=== PATIENT | female | born 1995 | race Caucasian/White ===

== ENCOUNTER 2018-08-04 19:50 | Emergency (ER) | payer OTHER, SELFPAY ==
[2018-08-04 19:56] VITALS: BP 152/92; PULSE 118; RESP 14; TEMP 36.4; O2SAT 98
--- NOTE | 2018-08-04 19:59 | DI.RAD.S_ITS ---
PROCEDURE: XR KNEE RT 3V INDICATIONS: pain/ swelling right knee, remote trauma TECHNIQUE: 3 views of the knee were acquired. COMPARISON: None. FINDINGS: Bones: No fractures or dislocations. No suspicious bony lesions. Soft tissues: No joint effusion. No suspicious soft tissue calcifications. IMPRESSION: No acute osseous abnormality of the right knee. Dictated by: Ru Dasilva M.D. on 08/04/2018 at 20:30 Approved by: Ru Dasilva M.D. on 08/04/2018 at 20:31
--- NOTE | 2018-08-04 20:17 | ED_ITS ---
HPI - Extremity Injury (Lower) <ANA Anthony - Last Filed: 08/04/18 21:10> General Chief Complaint: Extremity Injury, Lower Stated Complaint: right knee pain x3 days Time Seen by Provider: 08/04/18 19:57 Source: patient Mode of arrival: ambulatory Limitations: no limitations History of Present Illness HPI Narrative: 23-year-old healthy female presents emergency department today complaining of right knee pain for the past few days that is worse with driving and worse with knee flexion. States pain is 8/10 sharp shooting down the medial aspect of the joint, and there is a dull aching diffuse pain under the patella. Patient reports that about a year ago she fell on her knee on a rock while hiking and became swollen and painful for few weeks, she has had a few episodes since then of recurrence swelling and pain. Patient was seen [place] the base and x- ray was done however she has not been able to get the results even though she has tried calling the clinic multiple times. Patient denies fevers, chills, recurrence trauma or twisting of the knee, nausea, vomiting, change in bowel or bladder function, chest pain, or shortness of breath. MD complaint: knee injury Onset (ago): week(s) Type of Injury: blunt Place: street/outdoors Severity: moderate Severity scale (1-10): 8 Relieving factors: rest Exacerbating factors: weight bearing Context: fall Associated symptoms: snap/pop sensation Other symptoms: none Related Data Allergies Allergy/AdvReac Type Severity Reaction Status Date / Time No Known Drug Allergies Allergy Verified 08/04/18 19:59 Review of Systems <ANA Anthony - Last Filed: 08/04/18 21:10> Review of Systems REVIEW OF SYSTEMS: GENERAL: Denies fever or chills. HENT: No head trauma, hearing loss or sore throat. EYES: No loss of vision, double vision, eye pain, or irritation. CARDIOVASCULAR: No chest pain or syncope. RESPIRATORY: No shortness of breath or cough. GASTROINTESTINAL: No nausea, vomiting, diarrhea, or constipation. GENITOURINARY: No flank pain or dysuria. MUSCULOSKELETAL: See HPI, complains of knee pain. INTEGUMENTARY: No rash, lesions, or pruritus. NEURO: No numbness, tingling, memory loss, or confusion. PSYCH: No behavior or mood changes. PFSH <ANA Anthony - Last Filed: 08/04/18 21:10> Medical History No significant medical problems (Acute) Social History Smoking Status: Never smoker Social History Smoking Status: Never smoker Exam <ANA Anthony - Last Filed: 08/04/18 21:10> Initial Vital Signs Initial Vital Signs: Vital Signs Temperature 97.5 F L 08/04/18 19:56 Pulse Rate 118 H 08/04/18 19:56 Respiratory Rate 14 08/04/18 19:56 Blood Pressure 152/92 H 08/04/18 19:56 Pulse Oximetry 98 08/04/18 19:56 PHYSICAL EXAMINATION: GENERAL: Well groomed, alert, and cooperative Answers questions promptly and appropriately. Vital signs noted. HENT: Normocephalic, atraumatic. EYES: Conjunctiva pink, sclera white, no periorbital swelling. CARDIOVASCULAR: S1 and S2 sounds normal. Regular rate and rhythm, no murmurs, clicks, or bruits. No pedal edema. RESPIRATORY: No respiratory distress, normal rate and rhythm. MUSCULOSKELETAL: Passive range of motion performed this slight discomfort on flexion. Slight tenderness and minor swelling to area under patella. No tenderness along the joint line, no tenderness with patella movement, negative drawer test, no laxity of the MCL or LCL, negative George test. No erythema or increased warmth surrounding the joint. No bruises noted. EXTREMITIES: CMS intact. Full range of motion and 5/5 strength to upper and lower extremities SKIN: Warm, dry, soft, appropriate color for ethnicity. No lesions, rashes, or wounds. NEURO: Alert and Oriented X 3. Good coordination. No ataxia, or sensory deficits, or cognitive issues. PSYCH: Appropriate affect and mood. <Tatiana Mariscal DO - Last Filed: 08/05/18 04:16> Initial Vital Signs Initial Vital Signs: Vital Signs Temperature 97.5 F L 08/04/18 19:56 Pulse Rate 118 H 08/04/18 19:56 Respiratory Rate 14 08/04/18 19:56 Blood Pressure 152/92 H 08/04/18 19:56 Pulse Oximetry 98 08/04/18 19:56 Course <ANA Anthony - Last Filed: 08/04/18 21:10> Course Narrative: Abiodun bandage applied Orders Ordered: ED Orders 08/04/18 19:59 XR knee RT 3V Stat Discontinued Medications Ibuprofen (Advil) 800 mg PO NOW ONE Stop: 08/04/18 20:18 Last Admin: 08/04/18 20:38 Dose: 800 mg Consultations Consultation #1: Patient's staffed with Dr. Mariscal. Vital Signs - 8 hr 08/04/18 20:56 Pulse Rate 88 Respiratory Rate 14 Blood Pressure 138/80 <Tatiana Mariscal DO - Last Filed: 08/05/18 04:16> Orders Ordered: ED Orders 08/04/18 19:59 XR knee RT 3V Stat Discontinued Medications Ibuprofen (Advil) 800 mg PO NOW ONE Stop: 08/04/18 20:18 Last Admin: 08/04/18 20:38 Dose: 800 mg Vital Signs - 8 hr 08/04/18 20:56 Pulse Rate 88 Respiratory Rate 14 Blood Pressure 138/80 MDM - Extremity Injury (Lower) <ANA Anthony - Last Filed: 08/04/18 21:10> Medical Records Attestation: I reviewed the patient's medical records. Lab Data Attestation: I reviewed the patient's lab results. ECG Data Attestation: I personally reviewed and interpreted this ECG as follows: Interpretation: [address] [address] XRay Report Signed Patient: Lauren Caceres KMR#: [id number] : 1995Acct:[id number] Age/Sex: 23 / FDate of Service: 08/04/18 Loc: ED Accession Number: [id number] Procedure: XR knee RT 3V Ordering Provider: Eliane Castro PROCEDURE: XR KNEE RT 3V INDICATIONS: pain/ swelling right knee, remote trauma TECHNIQUE: 3 views of the knee were acquired. COMPARISON: None. FINDINGS: Bones: No fractures or dislocations. No suspicious bony lesions. Soft tissues: No joint effusion. No suspicious soft tissue calcifications. IMPRESSION: No acute osseous abnormality of the right knee. Dictated by: Ru Dasilva M.D. on 08/04/2018 at 20:30 Approved by: Ru Dasilva M.D. on 08/04/2018 at 20:31 MDM Narrative Medical decision making narrative: Unsure exact cause of the pain however most likely strain, contusion or bursitis due to stable ligaments during exam, negative x-ray, lack of erythema or bruising, and no history of twisting of the knee that would make me suspect meniscal. Discussed with patient follow-up for further imaging and physical therapy if symptoms continue. Strict return precautions given. Discharge Plan Departure Patient Disposition: Home Clinical Impression: Acute knee pain Qualifiers: Laterality: right Qualified Code(s): M25.561 - Pain in right knee Discharge Date/Time: 08/04/18 20:57 Interventions: ED Discharge Assessment Last Done: 08/04/18 20:56 Instructions: DI for Knee Sprain, DI for Knee Pain Activity Restrictions/Additional Instructions: Thank you for entrusting me with your care today. As discussed, I am uncertain the cause for your knee pain and it may be caused by a strain or bursitis. Take ibuprofen for next week and use Abiodun bandages needed to decrease swelling. As discussed follow-up with her primary care provider to discuss further imaging such as an MRI if symptoms persist and or physical therapy. Please return emergency department if you have fevers, chills, chest pain, or profuse vomiting. <Tatiana Mariscal DO - Last Filed: 08/05/18 04:16> Cosign ED Attending Mikael Attestation: I was immediately available in the department for consultation. Documentation has been reviewed. I agree with assessment and plan.
[2018-08-04] MEDS: IBUPROFEN 400 MG TABLET 800 MG PO (20:38)
[2018-08-04 20:56] VITALS: BP 138/80; PULSE 88; RESP 14
== END 2018-08-04 20:57 | disposition home or self-care (01) ==
PROVIDERS: Emergency Provider Nurse Practitioner
DX: M25.561 Pain in right knee (principal); W18.30XA Fall on same level, unspecified, initial encounter; Y93.01 Activity, walking, marching and hiking
CPT/HCPCS: 73562; 99282; 99283